=== PATIENT | female | born 1940 | race Caucasian/White ===

== ENCOUNTER 2022-07-05 14:55 | Emergency (ER) | payer MEDICARE, OTHER ==
[2022-07-05] MEDS ORDERED: Morphine 2 MG/ML SYRINGE IVPUSH ONE (15:17)
[2022-07-05] MEDS ORDERED: Sodium Chloride 0.9% 10 ML Syringe FLUSH PRN (15:17)
[2022-07-05 15:48] LABS: ANION GAP 12.6 mmol/L (5-15)
== END 2022-07-05 17:15 ==
LOC: KA.ED 14:55
DX: S72.001A Fracture of unspecified part of neck of right femur, initial encounter for closed fracture (principal); F03.90 Unspecified dementia, unspecified severity, without behavioral disturbance, psychotic disturbance, mood disturbance, and anxiety; Z88.0 Allergy status to penicillin; W19.XXXA Unspecified fall, initial encounter
CPT/HCPCS: 36415; 51702; 80053; 85025; 96374; 99284; 99285-25; J2270